=== PATIENT | female | born 1990 | race Caucasian/White ===

== ENCOUNTER 2017-10-01 11:49 | Emergency (ER) | payer SELFPAY ==
[2017-10-01 12:00] VITALS: BMI 23.9
[2017-10-01] MEDS ORDERED: SODIUM CHLORIDE 1,000 ML IV STA (12:28)
[2017-10-01] MEDS ORDERED: ONDANSETRON 4 MG/2 ML VIAL IVPB ONE ×2 (12:29→15:56)
[2017-10-01] MEDS ORDERED: KETOROLAC TROMETHAMINE 30 MG/1 ML VIAL IVPUSH ONE (12:29)
[2017-10-01 12:30] LABS: HEMOGLOBIN 14.8 GM/dl (10.7-15.3); MCH 27.7 pg (25.7-33.7); MCHC 32.1 g/dl (32.0-36.0); MEAN CELL VOLUME 86.3 fl (80-96); MEAN PLT VOLUME 7.8 fl (7.5-11.1); PLATELET COUNT 329 K/MM3 (134-434); RBC 5.32 M/mm3 (3.60-5.2); RDW 12.4 % (11.6-15.6); WHITE BLOOD COUNT 8.6 K/mm3 (4.0-10.8)
[2017-10-01] MEDS ORDERED: ONDANSETRON 4 MG/2 ML VIAL ONE ×2 (12:31→15:48)
--- NOTE | 2017-10-01 12:31 | PDOC ---
History of Present Illness - General Chief Complaint: Pain Stated Complaint: abdominal pain and vomiting Time Seen by Provider: 10/01/17 12:21 - History of Present Illness Initial Comments: 10/01/17 12:31 Chief complaint: Nausea and vomiting History of present illness: Nausea, vomiting, and left lower quadrant abdominal pain, left flank pain since Thursday. Several small watery stools as well. Yesterday began to have dysuria and dark urine. Review of systems: No hematemesis, melena, bloody stool. No chest pain, shortness of breath, vaginal bleeding or discharge. No visual or focal neurologic symptoms or unsteadiness of gait. No fever but occasional chills have been present. No headache, URI symptoms, sore throat, cough. Implantable contraception used. Menses are regular, but occur every 2 weeks. Past medical history: Systemic lupus for many years, primarily joint pains and "foggy" mentation. Originally thought to be bipolar illness and treated with lithium. However, lupus diagnosed because of facial rash and joint inflammation. In remission now. No recent symptoms since the of her child in 2012. Maintained on no medication. Social history: No drugs or alcohol or tobacco. Fully active, employed, stable: Family. Family history: Reviewed and noncontributory including early coronary artery disease, metabolic disease including diabetes, cancer, and collagen vascular disease Physical exam: Alert and oriented 3, well-developed well-nourished, mild distress due to abdominal pain and nausea. However, cooperative Afebrile, vital signs normal No pallor or icterus. PERRLA, fundi benign, ENT clear Neck supple without bruit mass or nodes Chest clear with full breath sounds throughout bilaterally and no wheezes rales or rhonchi CV regular without murmur rub or gallop pulses full and symmetric no JVD or edema Abdomen nondistended. Bowel sounds normal. Soft without mass or organomegaly. There is mild to moderate tenderness to deep palpation in the left lower quadrant, without guarding or rebound. There is left CVAT Extremities no CCE Skin clear, no rash, adequate turgor and wet mucous membranes Neurological intact Impression: Most likely is UTI/acute pyelonephritis. Other possibilities include gastroenteritis, colitis, ovarian cyst or torsion, PID, renal colic. Plan: Urinalysis, test, CBC, chemistries, lipase, IV fluids, antiemetic, and analgesic. Further evaluation and treatment depending on preliminary results. 10/01/17 15:15 Past History - Past Medical History Allergies/Adverse Reactions: Allergies Allergy/AdvReac Type Severity Reaction Status Date / Time No Known Allergies Allergy Verified 10/01/17 11:50 Home Medications: Ambulatory Orders Ketorolac Tromethamine [Toradol] 10 mg PO Q6H #20 tablet 10/01/17 Tramadol HCl 50 mg PO Q4HWA PRN #12 tablet MDD 4 10/01/17 COPD: No Other medical history: LUPUS - Suicide/Smoking/Psychosocial Hx Smoking History: Never smoked Hx Alcohol Use: Yes (occasional) Drug/Substance Use Hx: No Substance Use Type: None *Physical Exam - Vital Signs Last Vital Signs Temp Pulse Resp BP Pulse Ox 98.1 F 94 H 18 102/59 98 10/01/17 11:50 10/01/17 11:50 10/01/17 11:50 10/01/17 11:50 10/01/17 11:50 ED Treatment Course - LABORATORY CBC & Chemistry Diagram: 10/01/17 12:27 10/01/17 12:15 Medical Decision Making - Medical Decision Making 10/01/17 15:01 White blood count 8.6, but with a marked left shift of 83 segs and 11 bands. H& H 14.7 and 46, probably a sign of dehydration Chemistries without significant abnormalities, including normal LFTs and lipase Urinalysis with specific gravity greater than 1.030, 4+ ketones, no nitrites/ leukocytes esterase, very few red or white cells. Not entirely consistent UTI or kidney stone, but these are still remotely possible Pelvic exam performed: No discharge or bleeding. External genitalia normal. Mild cervical erosions. No other lesions. Uterus nongravid, firm, nontender to palpation. Mild CMT with pain experienced in the left adnexa. Marked tenderness and enlargement of the left adnexa. Right adnexa are without tenderness or mass. Findings would be consistent with an ovarian cyst, partially ruptured, with fluid tracking to the left flank, less likely tubo-ovarian infection or abscess. Further ultrasound evaluation ordered. 10/01/17 15:16 10/01/17 17:10 Patient's pain is much improved. She is ambulating freely. Abdominal exam reveals no persistent tenderness to deep palpation in either lower quadrants and no CVAT. Nausea and vomiting have subsided. Tentative diagnosis is ruptured ovarian cyst as noted on sonogram. Discharged on pain control and follow-up with [employer]. To return to ER if symptoms worsen or further symptoms develop. Fully ambulatory and in no significant pain or other distress upon discharge with her significant other to follow-up as recommended. *DC/Admit/Observation/Transfer Diagnosis at time of Disposition: Ruptured ovarian cyst - Discharge Dispostion Disposition: HOME Condition at time of disposition: Improved Admit: No - Prescriptions Prescriptions: Ketorolac Tromethamine [Toradol] 10 mg PO Q6H #20 tablet Tramadol HCl 50 mg PO Q4HWA PRN #12 tablet MDD 4 PRN Reason: Severe Pain - Referrals Referrals: Cherry Mcadams MD [Staff Physician] - 1 week - Patient Instructions Printed Discharge Instructions: DI for Ovarian Cyst Additional Instructions: Remain on clear liquids until nausea completely resolved, then light diet as tolerated Medication for nausea and vomiting, pain, as directed. Return to ER if the pain worsens, if there is fever or chills, increased vomiting or diarrhea, or other serious symptoms. Otherwise follow-up with your automatic mounter within 1 week for further examination, evaluation and treatment. - Post Discharge Activity
[2017-10-01] MEDS ORDERED: KETOROLAC TROMETHAMINE 30 MG/1 ML VIAL ONE (13:04)
[2017-10-01] MEDS ORDERED: SODIUM CHLORIDE 1,000 ML IV ONE ×2 (13:15→14:30)
[2017-10-01 13:20] LABS: PH,URINE 5.5 (4.5-8); URINE APPEARANCE Clear; URINE BILIRUBIN 1+ (NEGATIVE); URINE GLUCOSE (UA) Negative (NEGATIVE); URINE KETONE 4+ (NEGATIVE); URINE NITRITE Negative (NEGATIVE); URINE PROTEIN Trace (NEGATIVE); URINE UROBILINOGEN 0.2 (0.2-1.0)
[2017-10-01 13:23] LABS: URINE BLOOD Trace-intact (NEGATIVE); URINE COLOR YELLOW
[2017-10-01 13:28] LABS: HCG,QUALITATIVE URINE NEGATIVE
[2017-10-01 13:39] LABS: URINE WBC 0-2 (0-5)
[2017-10-01 13:40] LABS: EPI CELLS FEW /HPF; URINE BACTERIA NONE SEEN /hpf (NEGATIVE)
[2017-10-01 13:41] LABS: ALBUMIN 4.4 g/dl (3.4-5.0); ALK PHOS 67 U/L (45-117); ANION GAP 12 (8-16); BILIRUBIN,TOTAL 0.9 mg/dL (0.2-1.0); BLOOD UREA NITROGEN 14 mg/dL (7-18); CALCIUM 9.5 mg/dL (8.5-10.1); CHLORIDE 107 mmol/L (98-107); CO2 22 mmol/L (21-32); CREATININE 0.6 mg/dL (0.55-1.02); GLUCOSE,RANDOM 97 mg/dL (74-106); LIPASE 113 U/L (73-393); POTASSIUM 3.9 mmol/L (3.5-5.1); SGOT/AST 13 U/L (15-37); SGPT/ALT 16 U/L (12-78); SODIUM 141 mmol/L (136-145); TOT PROT 8.3 g/dl (6.4-8.2)
[2017-10-01 14:03] LABS: PLATELET ESTIMATE ADEQUATE
[2017-10-01] MEDS ORDERED: ACETAMINOPHEN 1000 MG/100 ML VIAL (NON FORMULARY) IVPB ONE (15:45)
[2017-10-01] MEDS ORDERED: ACETAMINOPHEN INJECTION 100 ML IVPB ONE (15:48)
[2017-10-01 15:58] VITALS: BP 114/55; PULSE 97; TEMP 98.6
== END 2017-10-01 16:53 | disposition home or self-care (01) ==
LOC: FER 11:49
CPT/HCPCS: 36415; 76856-TC; 80053; 81003; 81015; 83690; 84703; 85025; 87070; 87077; 87086; 87186; 87205; 87491; 87591; 99283-25